=== PATIENT | female | born 1960 | race Caucasian/White ===

== ENCOUNTER 2016-07-01 12:06 | Emergency (ER) | payer OTHER ==
[~2016-07-01 12:06] MED LIST: CRESTOR10 MG; MELOXICAM15 MG PO; PERCOCET 5/3251 TAB PO; PRILOSEC OTC20 M1 PO; TEKTURNA300 MG
[2016-07-01] MEDS ORDERED: PRILOSEC OTC20 M1 PO (12:30)
[2016-07-01] MEDS ORDERED: TECTURNA PO (12:30)
[2016-07-01] MEDS ORDERED: CRESTOR10 M1 PO (12:30)
[2016-07-01] MEDS ORDERED: ROSUVASTATIN CA10 MG PO (12:39)
[2016-07-01] MEDS ORDERED: TEKTURNA HCT 31 EACH PO (12:39)
[2016-07-01] MEDS ORDERED: GLUCOPHAGE XR500 M1 PO (13:10)
[2016-07-01] MEDS ORDERED: PROZAC10 M1 PO (13:10)
[2016-07-01 13:15] LABS: BASO % 0.3 % (0-2); EOS % 1.5 % (0-7); EOSINOPHIL ABSOLUTE COUNT 0.1 tho/cmm (0.0-0.7); HCT-HEMATOCRIT 43.4 % (34.0-49.0); HGB-HEMOGLOBIN 15.2 gm/dl (12.0-15.5); IMMATURE GRANULOCYTES ABSOLUTE 0.01 tho/cmm (0-0.03); IMMATURE GRANULOCYTES PERCENT 0.1 % (0-0.3); LYMPH % 17.2 % (20-45); LYMPH ABSOLUTE COUNT 1.4 tho/cmm (0.8-4.5); MCH (MEAN CORPUSCULAR HGB) 32.8 pg (28.0-32.0); MCV (MEAN CELL VOLUME) 93.7 fl (82.0-96.0); MEAN PLATELET VOLUME 9.7 cmc (9.4-12.4); MONO % 6.2 % (0-12); MONOCYTE ABSOLUTE COUNT 0.5 tho/cmm (0.0-1.2); NEUTROPHIL ABSOLUTE COUNT 5.9 tho/cmm (1.6-8.0); NEUTROPHIL-AUTOMATED 5.9 tho/cmm (1.6-8.0); NEUTROPHILS % 74.7 % (40-80); PLATELET COUNT 205 tho/cmm (150-450); RED BLOOD COUNT 4.63 mil/cmm (4.00-5.20); RED CELL DISTRIBUTION WIDTH 13.5 % (12.4-16.4); WHITE BLOOD COUNT 7.9 tho/cmm (4.0-10.0)
[2016-07-01 13:27] LABS: ANION GAP 14 mmol/L (0-20); BLOOD UREA NITROGEN 9 mg/dl (6-24); CALCIUM 9.1 mg/dl (8.5-10.5); CARBON DIOXIDE-VENOUS 27 mmol/L (22-32); CHLORIDE 105 mmol/l (96-110); CREATININE 0.77 mg/dl (0.50-1.10); GLUCOSE 175 mg/dL (70-110); POTASSIUM 3.9 mmol/L (3.7-5.1); SODIUM 142 mmol/L (135-145); eGFR VALUE FOR BLACK >90 mL/Min
== END 2016-07-01 14:00 ==
LOC: EDMED 12:06
PROVIDERS: Emergency Medicine
DX: R07.89 Other chest pain (principal); I10 Essential (primary) hypertension; E78.5 Hyperlipidemia, unspecified; Z90.49 Acquired absence of other specified parts of digestive tract; Z87.891 Personal history of nicotine dependence; Z79.899 Other long term (current) drug therapy